=== PATIENT | female | born 1975 | race African-American/Black ===

== ENCOUNTER 2016-08-04 15:50 | Emergency (ER) | payer OTHER ==
--- NOTE | ~2016-08-04 | CT2 ---
[facility] A Service of [facility] RADIOLOGY TEXT RESULTS PATIENT: YUKI HOWARD LOCATION: [facility] : [birth year] UNIT #: [id number] AGE: [address]: Nick Rodriguez MD SEX: F ORDER DR: [id number] [facility] [address] [place], [place] [address] [id number] E MR#: [id number] #: [id number] NAME: YUKI HOWARD : 1975 SEX: F STUDY DATE/TIME: 08/04/2016 20:43 UNIT: [facility] ROOM: STUDY DESCRIPTION: CT Abd and Pelv W Cont Attending Physician: Nick Rodriguez M.D. Ordering Physician: Felipe Desai D.O. [facility] REPORT This report is preliminary unless electronic signature is present EXAM CT of the abdomen and pelvis HISTORY Abdomen pain, nausea, vomiting for [address] abdomen and pelvis performed with administration of 100 mL Isovue-370. Enteric contrast also administered. Comparison 03/29/2015. This CT exam was performed with one or more of the following radiation dose reduction techniques: Automatic exposure control, adjustment of mA and/or kV according to patient size, and iterative reconstruction. FINDINGS Minimal dependent atelectasis at lung bases. Inferior heart and pericardium unremarkable. The liver shows mild enlargement measuring about 18.7 cm in craniocaudal extent. No significant change. Gallbladder, spleen, pancreas, adrenal glands notable for hypodense 1.4 cm x 1.3 cm hypodense nodule in the right adrenal gland. Unchanged from prior examination. Unchanged from noncontrast-enhanced examination 03/15/2013. Stability over this timeframe favors benign adrenal adenoma. There is excreted contrast material in the intrarenal collecting systems and proximal bilateral ureters. Given apparent bolus dynamics on this examination with contrast remaining in the right atrium and ventricle, the appearance of the contrast in the renal collecting systems raises the possibility of prior intravascular contrast administration. Please correlate with patient's history and with renal function. The medical laboratory technologist indicates to me there was no problem with the contrast administration for this examination. No cystic or solid mass lesion is suggested in the kidneys. There is no perinephric inflammatory change. There is no hydronephrosis. CT PELVIS: Mildly prominent inguinal lymph nodes bilaterally, right more STS. [facility] A Service of [facility] RADIOLOGY TEXT RESULTS PATIENT: YUKI HOWARD LOCATION: [facility] : 71 UNIT #: [id number] AGE: [address]: Nick Rodriguez MD SEX: F ORDER DR: so than left, with a dominant 1.4 cm short-axis node in the right inguinal region. There is some subtle subcutaneous fat stranding and haziness in the right aspect of the patient's upper groin/inferior mons pubis with a suggestion of some subtle skin thickening. Please correlate with any clinical signs or symptoms of cellulitis. I see no subcutaneous air or fluid. The urinary bladder is unremarkable. Uterus is enlarged and somewhat lobulated consistent with uterine fibroids. There is a dominant-appearing fibroid along the posterior uterus measuring about 2.9 cm in diameter, previously 2.4 cm. There is a cystic structure in the right adnexa measuring 2.6 x 2.7 cm. It contains some layering higher-density material in its dependent portion. Appearance favors ovarian cyst with some layering internal products of hemorrhage. No free fluid. No adjacent inflammatory change. If it would assist in management, this could be further assessed with pelvic ultrasound. There is no pelvic or retroperitoneal adenopathy. The distal esophagus, stomach, small bowel unremarkable. Umbilical hernia containing fat without complication. Stable appearance. Patient retains the appendix. It is directed cephalad. It appears abnormally dilated, measuring up to about 1 cm in diameter. There is no periappendiceal inflammatory change. On prior examination, the appendix measured approximately 6 mm in diameter. No appendicolith. There is no compelling evidence of appendicitis. Low-density material within the appendix favored to be fluid. Correlate with exam and laboratory data. The colon shows no acute abnormality. Vascular structures poorly defined due to poor contrast bolus. There is no aortic aneurysm. The bony structures show no acute abnormality. IMPRESSION 1. Unusually prominent contrast excretion into the intrarenal collecting systems and proximal ureters. Contrast is seen in the right heart and there is poor opacification of the systemic arteries overall. Cause for contrast in the intrarenal collecting systems is unclear. Please correlate with any known recent intravascular contrast administration. Please correlate with patient's renal function. No hydronephrosis. Kidneys, ureters, urinary bladder otherwise unremarkable. 2. There is a hypodense 2.6 cm x 2.7 cm structure in the right ovary/adnexa with some layering high-density material in its dependent portion. This is favored to be a physiologic ovarian cyst with layering internal products of hemorrhage. It could be further evaluated with ultrasound if it would assist in patient management. 3. The appendix is distended and contains hypodense, probably fluid, material. It measures about 1 cm in diameter but there is no periappendiceal inflammatory change. There is no compelling evidence of appendicitis. Please correlate with clinical exam and laboratory data. Weight should be given the clinical assessment. On prior CT in March 2015, the appendix measured about 6 mm in diameter. 4. Fibroid uterus. 5. Mildly prominent inguinal lymph nodes bilaterally, right greater than [facility] of [facility] RADIOLOGY TEXT RESULTS PATIENT: YUKI HOWARD LOCATION: [facility] : 71 UNIT #: [id number] AGE: [address]: Nick Rodriguez MD SEX: F ORDER DR: left, with a dominant 1.4 cm short-axis right inguinal lymph node. Superficial to these nodes, there is some subcutaneous fat stranding and haziness in the right upper groin/inferior mons pubis with a suggestion of some mild associated skin thickening. Please correlate with any clinical signs or symptoms of localized infection/inflammation such as cellulitis. 6. Mild hepatic enlargement. 7. Stable approximately 1.4 cm right adrenal adenoma. 8. Umbilical hernia containing only fat without complication. Dictated by... Camilo García M.D. THIS IS AN ELECTRONICALLY VERIFIED REPORT Camilo García M.D. at 08/05/2016 5:40 PM MEL/julien TD: 08/05/2016 00:36 JOB #: [id number] MEDICAL IMAGING REPORT Page 1 of 1 COPY
[~2016-08-04 15:50] MED LIST: ALBUTEROL17 GM INH; AMARYL PO; BACTRIM DS TABL1 TA1 PO; BENTYL20 MG PO; DARVOCET-N 1001 TAB PO; DIFLUCAN PO; ERYTHROMYCIN B500 MG PO; FLAGYL PO; GLYNASE1.5 MG PO; HUMULIN 70/30 V10 ML; HUMULIN 70/30 V10 ML SQ; HUMULIN N VIAL SUBQ; HUMULIN R100 U/ML SUBQ; IBUPROFEN PO; LEVEMIR SUBQ; LEVEMIR100 U/ML SUBQ; METFORMIN HCL1000 M1 PO; NOVOLIN 70/30 V10 M1 SUBQ; NOVOLIN 70/30 V10 ML INJ; NOVOLIN 70100 UNITS/ SUBQ; NYSTATIN15 GM OINT EXT; PRINIVIL20 M1 PO; SOMA PO
[2016-08-04 17:04] LABS: BASOPHIL# 0.1 X10e3 (0-0.3); BASOPHIL% 0.6 % (0-2.5); EOSINOPHIL# 0.2 X10e3 (0-0.7); HEMATOCRIT 43.2 % (35.0-45.0); HEMOGLOBIN 13.9 gm/dL (12.0-16.0); LYMPHOCYTE# 2.8 X10e3 (1.0-3.5); LYMPHOCYTE% 32.2 % (17.0-45.0); MEAN CELL VOLUME 85.4 FL (83-96); MEAN CORPUSCULAR HEMOGLOBIN 27.5 PG (28-34); MEAN CORPUSCULAR HGB CONC 32.2 g/dL (30-36); MEAN PLATELET VOLUME 9.8 FL (6.5-11.5); MONOCYTE% 11.3 % (3.0-12.0); NEUTROPHIL# 4.7 X10e3 (1.5-7.1); NEUTROPHIL% 53.9 % (40-75); PLATELET COUNT 232 X10e3 (140-420); RED BLOOD COUNT 5.06 X10e (3.90-5.30); RED CELL DISTRIBUTION WIDTH 17.4 % (11.0-15.5); WHITE BLOOD COUNT 8.7 X10e3 (4.0-10.5)
[2016-08-04 17:10] LABS: DIFF IND NO
[2016-08-04 17:16] LABS: POC - CKMB 1.2 ng/mL (0.0-7.9); POC - TROPONIN <0.05 ng/mL (<=0.05)
[2016-08-04 17:40] LABS: ALBUMIN SERUM 3.8 g/dL (3.5-5.0); BETA HYDROXYBUTYRATE 0.31 MMOL/L (0.02-0.27); BILIRUBIN, DIRECT 0.1 mg/dL (0.0-0.2); BILIRUBIN,INDIRECT 0.2 mg/dL (0.0-0.9); BILIRUBIN,TOTAL 0.3 mg/dL (0.2-2.0); CALCIUM SERUM 9.6 mg/dL (8.4-10.2); CREATININE SERUM 0.6 mg/dL (0.6-1.4); GLOM FILT RATE Estimated 129.4 mL/min (>60); POTASSIUM 3.7 mmol/L (3.5-5.1)
[2016-08-04 18:14] LABS: URINE SOURCE CLEAN CATCH
[2016-08-04 18:18] LABS: URINE APPEARANCE CLEAR; URINE BILIRUBIN NEG (NEG); URINE BLOOD NEG (NEG); URINE COLOR YELLOW; URINE GLUCOSE >1000 MG/DL (NEG); URINE KETONE 1+ (NEG); URINE LEUKOCYTE ESTERASE NEG (NEG); URINE NITRATE NEG (NEG); URINE PROTEIN NEG (NEG); URINE SPECIFIC GRAVITY 1.035 (1.003-1.035); URINE UROBILINOGEN 0.2 MG/DL (NEG)
[2016-08-04 18:27] LABS: CULTURE INDICATED? NO
== END 2016-08-04 22:42 | disposition home or self-care (01) ==
LOC: CED 15:50
PROVIDERS: Emergency Medicine
DX: E11.9 Type 2 diabetes mellitus without complications (principal); I10 Essential (primary) hypertension; F17.200 Nicotine dependence, unspecified, uncomplicated
CPT/HCPCS: 36415; 74177; 80048; 80076; 81003; 82010; 82553; 82947; 83690; 84484; 84703; 85025; 96361; 96374; 96375; 99284; J2405; Q9967

== ENCOUNTER 2016-11-08 07:45 | Inpatient (IN) | payer OTHER ==
[~2016-11-08] VITALS: Ht 142.2 cm; Wt 98.8 kg
--- NOTE | ~2016-11-08 | OR ---
Unit #: [id number] #: [id number] Patient: YUKI HOWARD [id number] [address] [address] [id number] I MR#: [id number] NAME: YUKI HOWARD ROOM: 302 Date of Procedure: 11/09/2016 Admission Date: 11/08/2016 Surgeon: Barrett Curtis M.D. : 1975 Attending Physician: Ameya Slaughter M.D. Primary Care Physician: [facility] OPERATIVE REPORT PREOPERATIVE DIAGNOSIS Right thigh abscess. POSTOPERATIVE DIAGNOSIS Right thigh abscess with wet gangrene of subcutaneous fat. PROCEDURES PERFORMED Incision and drainage of right thigh abscess and level 3 debridement. ANESTHESIA General endotracheal. COMPLICATIONS None. ESTIMATED BLOOD LOSS Minimal. DESCRIPTION OF PROCEDURE After the patient was prepped and draped in the usual fashion, right upper and inner thigh was examined. There was a fluctuant area, which was partly draining purulence. A 3 cm disk was scored out around this with electrocautery. There was thick creamy purulence beneath this and wet gangrene of the subcutaneous fat. All pus was expressed. This was sent for culture, necrotic shaggy wet gangrene was removed with a rongeur back to good bleeding tissue. The cavity of the abscess was approximately 4 x 4 cm. This did not go down to involve fascia. There was no evidence of fasciitis. The cavity was irrigated, suctioned free. Hemostasis was completed with electrocautery. The wound was packed with half-strength Betadine and dressings. The patient was taken to the recovery room in good condition. Dictated by... Rosaura Melgar/radha TD: 11/09/2016 14:55 JOB #: [id number] Unit #: [id number] #: [id number] Patient: YUKI HOWARD OPERATIVE REPORT Page 1 of 1 X Barrett Curtis PROCEDURE OPERATIVE NOTE
--- NOTE | ~2016-11-08 | US84 ---
[id number] [facility] [address] [place], [place] [address] [id number] I MR#: [id number] Acc #: [id number] NAME: YUKI HOWARD : 1975 SEX: F STUDY DATE/TIME: 11/10/2016 8:21 UNIT: [id number] ROOM: 302 STUDY DESCRIPTION: US LE Veins Complete Lester Stdy Attending Physician: Reinaldo Ramirez M.D. Ordering Physician: Ameya Slaughter M.D. Primary Care Physician: [facility]. MEDICAL IMAGING REPORT This report is preliminary unless electronic signature is present EXAM Bilateral lower extremity venous duplex, 11/10/2016 HISTORY Bilateral leg pain and elevated D-dimer for 2 days. Evaluate for deep vein thrombosis. TECHNIQUE Venous ultrasound examination of both lower extremities was performed using grayscale, spectral Doppler and color flow Doppler imaging. FINDINGS The examination is negative. There is no evidence of deep venous thrombus from the groin to the lower calf bilaterally. Visualized greater saphenous veins are also patent. IMPRESSION Negative examination. No evidence of lower extremity deep venous thrombosis. Dictated by... Anthony Stephens M.D. THIS IS AN ELECTRONICALLY VERIFIED REPORT Anthony Stephens M.D. at 11/11/2016 7:16 AM JAYJAY/kym TD: 11/10/2016 14:10 JOB #: [id number] MEDICAL IMAGING REPORT Page 1 of 1 COPY
--- NOTE | ~2016-11-08 | HP ---
Unit #: [id number] #: [id number] Patient: YUKI HOWARD [id number] [address] [address] [id number] I MR#: [id number] NAME: YUKI HOWARD ROOM: 302 Age: 41 Sex: F Admission Date: 11/08/2016 : 1975 Attending Physician: Heather Centeno M.D. Primary Care Physician: [facility]. HISTORY AND PHYSICAL CHIEF COMPLAINT Pain to the right inner thigh. HISTORY OF PRESENT ILLNESS The patient is a 41-year-old female with a history of an uncontrolled diabetes mellitus, brought to the emergency room complaining of the pain on the inner thigh. The patient stated the patient first noticed knot in the inner thigh three days ago and then she tried to compress with the warm compress, however that did not help. The patient presented with the abscess with the purulent drainage from the inner thigh. The patient also complains of feeling hot and positive for nausea and vomiting, denies any chest pain. The patient also complains of the headache and feels that the knot is on the back of the head. The patient's sugars have been running in the 300s for the last few days and thinks that the patient needs to be adjusted on the insulin. PAST MEDICAL HISTORY History of an asthma, bronchitis, glaucoma, diabetes and acute renal failure. PAST SURGICAL HISTORY History of a myomectomy and pilonidal cyst. HOME MEDICATION Patient is on the Levemir 40 units subcu, Humalog 10 units subcu b.i.d., metformin 1000 mg b.i.d., glimepiride 4 mg daily, lisinopril and hydrochlorothiazide 2.5/25, albuterol inhaler p.r.n., metoprolol. ALLERGIES No known drug allergies. SOCIAL HISTORY Smokes half a pack per day and drinks alcohol occasionally, denies any illicit drug abuse. FAMILY HISTORY Reviewed and none. REVIEW OF SYMPTOMS Positive for the pain at the inner thigh, pain at the head and nausea and vomiting and all other systems have been reviewed and are none. PHYSICAL EXAMINATION Unit #: [id number] #: [id number] Patient: YUKI HOWARD GENERAL APPEARANCE: On examination the patient is lying on a bed, not in acute distress. VITAL SIGNS: Temperature 98.6, pulse 127, respiratory rate 18, blood pressure 155/93, sating 100% at room air. HEENT: Head atraumatic and normocephalic. Pupils equal, round and reacting to light and accommodation. Extraocular movements are intact. NECK: Supple. LUNGS: Decreased air entry at the bases. HEART: Regular rate and rhythm. ABDOMEN: Soft. Positive bowel sounds. EXTREMITIES: Patient has inner thigh status post I/D with 30 mL of purulent material drained and complains of severe tenderness. NEUROLOGIC: Alert, awake, oriented. No gross focal motor deficit. DIAGNOSTIC STUDIES LABORATORY DATA: Sodium 134, potassium 4.4, chloride 102, bicarb 11, glucose 415, BUN 9, creatinine 0.8, AST 8, ALT 8, alkaline phosphatase 109, total bilirubin 2.4, lipase 23, lactic acid is 1, glucose at 370. UA shows glucose more than 1000. WBC is 17.7, hemoglobin 14.3, hematocrit 44, platelet is 247. CK total is 16. Troponin less than 0.05. D-dimer 632. Wound cultures are positive for the few Gram-positive cocci in pairs, occasional Gram-negative rods. Lactic acid is 1.7, glucose 248. ASSESSMENT 1. Sepsis. 2. Diabetic abscess. 3. Uncontrolled diabetes. PLAN Plan to admit the patient to the inpatient with the telemetry. Continue with empiric antibiotics with the vancomycin and Zosyn and will have the LSA consult for the abscess drainage and continue with the low dose sliding scale and follow with the wound cultures and follow with the septic protocol and further recommendations will follow. Dictated by Rosaura Valencia/halina TD: 11/08/2016 19:15 JOB #: [id number] HISTORY AND PHYSICAL Page 1 of 1 X HEATHER CENTENO MD X HISTORY AND PHYSICAL
--- NOTE | ~2016-11-08 | DS ---
Unit #: [id number] #: [id number] Patient: YUKI HOWARD [id number] [address] [address] [id number] I MR#: [id number] NAME: YUKI HOWARD ROOM: 302 Age: 41 Sex: F Admission Date: 11/08/2016 : 1975 Discharge Date: 11/10/2016 Attending Physician: Reinaldo Ramirez M.D. Primary Care Physician: [facility]. DISCHARGE SUMMARY DISCHARGE DIAGNOSES 1. Abscess and cellulitis, right thigh. 2. Sepsis. 3. Uncontrolled type 2 diabetes. HOSPITAL COURSE Patient is a 41-year-old female, presented to [facility] Emergency Department with a complaint of pain in her right thigh. She was noted to have abscess and was taken by the surgical service for I and D of the right thigh and level 3 debridement. Subsequently wound cultures have grown group B strep. At this time the patient states she feels well. She has been on Zosyn and vancomycin since admission. She is being discharged on Augmentin for 5 more days. She is also being discharged with home health for local wound care. DISCHARGE MEDICATIONS 1. Levemir 40 units subcu daily. 2. Humalog 10 units subcu b.i.d. 3. Metformin 1,000 mg p.o. b.i.d. 4. Glimepiride 4 mg p.o. daily. 5. Lisinopril/Hydrochlorothiazide 2.5/25 one p.o. daily. 6. Albuterol inhaler as needed. 7. Metoprolol at her previous daily dose. FOLLOWUP Patient should see her primary care provider in 1 week. Dictated by... Rosaura Rojas/antonieta TD: 11/12/2016 11:10 JOB #: [id number] Unit #: [id number] #: [id number] Patient: YUKI HOWARD DISCHARGE SUMMARY Page 1 of 1 X Reinaldo Ramirez MD X DISCHARGE SUMMARY
--- NOTE | ~2016-11-08 | BMI ---
[facility] Nutrition Therapy DATE: 11/10/16 Patient: YUKI HOWARD Physician: GAETANO Address: [address] [place] [address] Room/Bed: [address] [place] [address], Zip: [place] [address] Admit Date: 11/08/16 Date of : [birth year] Height: 4 8 Weight: 217 98.8 HIGH BMI NOTE: DX: PAIN TO R-THIGH ANTHROPOMETRICS: HT: 4'8", WT: 218#, BMI: 48.9 DIET: CCD, FLUID RESTRICTION RECOMMENDATIONS: RECOMMEND ADDING HEART HEALTHY TO CURRENT DIET ORDER TO PROMOTE A STEADY WEIGHT LOSS TOWARDS A HEALTHY BMI OF 19-25 Respectfully, CT RODRIGUEZ, MARIANA, LD [employer] cc: client file
--- NOTE | ~2016-11-08 | EKG ---
PATIENT: YUKI HOWARD UNIT #: [id number] Ventricular Rate: 116 BPM Atrial Rate: 116 BPM P-R Interval: 122 ms QRS Duration: 80 ms Q-T Interval: 330 ms QTC Calculation(Bezet): 458 ms P [place]: 73 degrees Calculated R [place]: 5 degrees Calculated T [place]: 58 degrees Diagnosis Line: Sinus tachycardia Diagnosis Line: Right atrial enlargement Diagnosis Line: Borderline ECG Diagnosis Line: When compared with ECG of 14-MAR-2013 20:23, Diagnosis Line: No significant change was found Diagnosis Line: Confirmed by BARTOLOME CHAIDEZ MD ([id number]) on Diagnosis Line: 11/10/2016 4:48:20 PM INTERPRETING MD: MEME
--- NOTE | ~2016-11-08 | CR72 ---
[facility] A Service of [facility] & [facility] RADIOLOGY TEXT RESULTS PATIENT: YUKI HOWARD LOCATION: [facility] 302-01 : [birth year] UNIT #: [id number] AGE: [address]: DAVID COLE V SEX: F ORDER DR: [id number] [facility] [address] [place], [place] [address] [id number] I MR#: [id number] Acc #: [id number] NAME: YUKI HOWARD : 1975 SEX: F STUDY DATE/TIME: 11/08/2016 8:33 UNIT: [address] ROOM: [facility] STUDY DESCRIPTION: CR Chest Single View Portable Attending Physician: David Cole M.D. Ordering Physician: Neyda Schulte P.A.-C. [facility] REPORT This report is preliminary unless electronic signature is present EXAM Portable chest, 11/08/2016. INDICATIONS Chest pain for 3 days and shortness of air. COMPARISON 02/04/2016 FINDINGS Portable view of the chest was obtained. The heart size and vascularity are normal. Lungs are clear. Bones are normal. IMPRESSION No active disease. Dictated by... Flo Lee M.D. THIS IS AN ELECTRONICALLY VERIFIED REPORT Flo Lee M.D. at 11/10/2016 6:15 AM Jodi TD: 11/09/2016 10:13 JOB #: [id number] MEDICAL IMAGING REPORT Page 1 of 1 COPY
--- NOTE | ~2016-11-08 | CO ---
Unit #: [id number] #: [id number] Patient: YUKI HOWARD [id number] [address] [place], [place] [address] [id number] I MR#: [id number] NAME: YUKI HOWARD ROOM: 302 Age: 41 Sex: F Admission Date: 11/08/2016 : 1975 Attending Physician: Reinaldo Ramirez M.D. Primary Care Physician: [facility] Consultation Date: 11/09/2016 CONSULTATION REPORT PRIMARY REASON FOR CONSULTATION Right thigh abscess. HISTORY OF PRESENT ILLNESS The patient is a 41-year-old woman with uncontrolled diabetes, who presents to the emergency room complaining of pain in her right inner thigh. She noticed a knot there 3 days ago, she tried to use warm compresses. The area began to swell, became more painful and she did have some spontaneous purulent drainage. She reports feeling nauseated and having some vomiting prior to admission. Her blood sugars have been running in the 300s for the last few days. She has never had any previous such symptoms. PAST MEDICAL HISTORY As above. She also has a history of asthma, bronchitis, glaucoma, diabetes, acute renal failure. She is status post myomectomy and pilonidal cyst excision. MEDICATIONS See her MAR. ALLERGIES She has no known medical allergies. SOCIAL HISTORY She smokes half pack a day of cigarettes. She drinks alcohol occasionally. She denies any drug abuse. FAMILY HISTORY Noncontributory. REVIEW OF SYSTEMS A 10-point review is performed. This is negative other than what was already listed in history of present illness. PHYSICAL EXAMINATION GENERAL: She is alert, in no apparent distress. VITAL SIGNS: Temperature 98.6, pulse 127, respirations 18, blood pressure 155/93. She is 100% saturated on room air. HEENT: Pupils are equal and round. Extraocular motions are intact. NECK: Supple without adenopathy. HEART: Regular rate and rhythm. LUNGS: Clear to auscultation anteriorly. ABDOMEN: Soft, obese, benign. Unit #: [id number] #: [id number] Patient: YUKI HOWARD EXTREMITIES: In right upper inner thigh, she has an area of induration approximately 10 cm in diameter. There is a central area of fluctuance and she is exquisitely tender. NEUROLOGIC: Negative focal sensory or motor deficits. SKIN: Warm and dry. LABORATORY DATA Significant for a white blood cell count of 17.7, hemoglobin 14.3. ASSESSMENT AND PLAN The patient with incompletely drained right thigh abscess. We will bring her to the operating room for incision and drainage. I have discussed with her. She is agreeable. This will be done today. Dictated by... Barrett Curtis M.D. ANA MARÍA/radha TD: 11/10/2016 16:35 JOB #: [id number] CONSULTATION REPORT Page 1 of 1 X Barrett Curtis X CONSULTATION REPORT
--- NOTE | ~2016-11-08 | NM69 ---
[facility] A Service of [facility] & [facility] RADIOLOGY TEXT RESULTS PATIENT: YUKI HOWARD LOCATION: [facility] 302-01 : [birth year] UNIT #: [id number] AGE: [address]: Reinaldo Ramirez MD SEX: F ORDER DR: [id number] [facility] [address] [place], [place] [address] [id number] I MR#: [id number] Acc #: [id number] NAME: YUKI HOWARD : 1975 SEX: F STUDY DATE/TIME: 11/10/2016 10:22 UNIT: [address] ROOM: [facility] STUDY DESCRIPTION: NM Pulm Vent and Perf Attending Physician: Reinaldo Ramirez M.D. Ordering Physician: Ameya Slaughter M.D. Primary Care Physician: [facility] MEDICAL IMAGING REPORT This report is preliminary unless electronic signature is present EXAM Ventilation perfusion study of the lungs HISTORY Tachycardia with elevated D-dimer. Evaluate for pulmonary embolus. FINDINGS The ventilation study is done with 25.3 mCi of technetium 99m DTPA in aerosol form and the perfusion study was done with 4.9 mCi of technetium 99m MAA. The perfusion ventilation images appear normal. IMPRESSION Normal ventilation perfusion study of the lungs. Dictated by... Flo Lee M.D. THIS IS AN ELECTRONICALLY VERIFIED REPORT Flo Lee M.D. at 11/10/2016 7:57 PM FEL/to TD: 11/10/2016 17:56 JOB #: [id number] MEDICAL IMAGING REPORT Page 1 of 1 COPY
[2016-11-08 08:47] LABS: BASOPHIL# 0.1 X10e3 (0-0.3); BASOPHIL% 0.3 % (0-2.5); EOSINOPHIL% 0.1 % (0.0-7.0); HEMOGLOBIN 14.3 gm/dL (12.0-16.0); LYMPHOCYTE# 1.4 X10e3 (1.0-3.5); LYMPHOCYTE% 7.8 % (17.0-45.0); MEAN CELL VOLUME 91.2 FL (83-96); MEAN CORPUSCULAR HEMOGLOBIN 29.6 PG (28-34); MEAN CORPUSCULAR HGB CONC 32.5 g/dL (30-36); MEAN PLATELET VOLUME 9.7 FL (6.5-11.5); MONOCYTE# 1.7 X10e3 (0-1.0); MONOCYTE% 9.4 % (3.0-12.0); NEUTROPHIL# 14.6 X10e3 (1.5-7.1); NEUTROPHIL% 82.4 % (40-75); PLATELET COUNT 247 X10e3 (140-420); RED BLOOD COUNT 4.82 X10e (3.90-5.30); RED CELL DISTRIBUTION WIDTH 16.9 % (11.0-15.5); WHITE BLOOD COUNT 17.7 X10e3 (4.0-10.5)
[2016-11-08 08:48] LABS: DIFF IND YES
[2016-11-08 09:07] LABS: ALBUMIN SERUM 3.6 g/dL (3.5-5.0); BILIRUBIN, DIRECT 0.1 mg/dL (0.0-0.2); BILIRUBIN,INDIRECT 2.3 mg/dL (0.0-0.9); BILIRUBIN,TOTAL 2.4 mg/dL (0.2-2.0); BUN/CREATININE RATIO 11.25; CALCIUM SERUM 9.3 mg/dL (8.4-10.2); CREATININE SERUM 0.8 mg/dL (0.6-1.4); GLOM FILT RATE Estimated 104.7 mL/min (>60); POTASSIUM 4.4 mmol/L (3.5-5.1); PROTEIN TOTAL SERUM 8.7 g/dL (6.0-8.3)
[2016-11-08 10:07] LABS: URINE SOURCE CLEAN CATCH
[2016-11-08 10:12] LABS: URINE APPEARANCE CLEAR; URINE BILIRUBIN NEG (NEG); URINE BLOOD NEG (NEG); URINE COLOR YELLOW; URINE GLUCOSE >1000 MG/DL (NEG); URINE KETONE 3+ (NEG); URINE LEUKOCYTE ESTERASE NEG (NEG); URINE NITRATE NEG (NEG); URINE PROTEIN 1+ (NEG); URINE UROBILINOGEN 0.2 MG/DL (NEG)
[2016-11-08 10:15] LABS: CULTURE INDICATED? NO; U HYALINE CASTS AUWI 0-2 /[LPF]; URBCS1 AUWI 0-2 /[HPF] (0-2); URINE BACTERIA AUWI NEG (NEGATIVE); URINE SQUAMOUS EPITHELIAL CELL NONE SEEN /[HPF]; UWBCS1 AUWI 0-2 (0-5)
[2016-11-08 10:36] LABS: PLATELET ESTIMATE NORMAL (NORMAL); RBC NORMAL YES
[2016-11-08 11:12] LABS: CK TOTAL 16 IU/L (26-140)
[2016-11-08 12:17] LABS: POC - CKMB 1.5 ng/mL (0.0-7.9); POC - TROPONIN <0.05 ng/mL (<=0.05)
[2016-11-09 07:17] LABS: HEMATOCRIT 39.8 % (35.0-45.0); HEMOGLOBIN 12.9 gm/dL (12.0-16.0); MEAN CELL VOLUME 89.9 FL (83-96); MEAN CORPUSCULAR HEMOGLOBIN 29.2 PG (28-34); MEAN CORPUSCULAR HGB CONC 32.5 g/dL (30-36); MEAN PLATELET VOLUME 9.4 FL (6.5-11.5); RED BLOOD COUNT 4.43 X10e (3.90-5.30); RED CELL DISTRIBUTION WIDTH 16.4 % (11.0-15.5); WHITE BLOOD COUNT 11.4 X10e3 (4.0-10.5)
[2016-11-09 07:51] LABS: BUN/CREATININE RATIO 11.66; CALCIUM SERUM 9.1 mg/dL (8.4-10.2); CREATININE SERUM 0.6 mg/dL (0.6-1.4); GLOM FILT RATE Estimated 129.4 mL/min (>60); POTASSIUM 4.1 mmol/L (3.5-5.1)
[2016-11-09 16:35] LABS: PARTIAL THROMBOPLASTIN TIME 27.6 SECONDS (23.5-31.3); PROTHROMBIN TIME (PATIENT) 10.8 SECONDS (10.0-11.7)
[2016-11-10 06:10] LABS: CALCIUM SERUM 8.8 mg/dL (8.4-10.2); CREATININE SERUM 0.5 mg/dL (0.6-1.4); GLOM FILT RATE Estimated 137.4 mL/min (>60); POTASSIUM 3.1 mmol/L (3.5-5.1)
[2016-11-10] MEDS ORDERED: LORTAB 7.5-3251 EACH PO (15:17)
[2016-11-10] MEDS ORDERED: AUGMENTIN PO (15:20)
[2016-11-10] MEDS ORDERED: LEVEMIR FL100 UNIT/1 SUBQ (15:27)
[2016-11-10] MEDS ORDERED: HUMALOG100 UNIT/1 SUBQ (15:28)
[2016-11-10] MEDS ORDERED: METFORMIN HCL1000 M1 PO (15:29)
[2016-11-10] MEDS ORDERED: AMARYL PO (15:29)
[2016-11-10] MEDS ORDERED: HCTZ PO (15:33)
[2016-11-10] MEDS ORDERED: ALBUTEROL20 ml INH (15:40)
[2016-11-10] MEDS ORDERED: TOPROL XL PO (15:50)
[2016-11-11 07:18] LABS: CHLAMYDIA TRACH Not Detected (Not Detected); N GONOR Not Detected (Not Detected)
== END 2016-11-10 18:04 | disposition home health service (06) | DRG 854 ==
LOC: CED 07:45 → CEDOF 11:50 → CED 12:15 → C3A PCU 12:15 → CEDOF 12:15 → C3A PCU 12:15 → CEDOF 16:59 → C3A PCU 11-09 06:48
PROVIDERS: Internal Medicine; Physician Assistant; Surgery
PROC: 0JBL0ZZ Excision of Right Upper Leg Subcutaneous Tissue and Fascia, Open Approach (ICD-10-PCS; principal; 2016-11-09 12:00)
DX: A41.9 Sepsis, unspecified organism (principal); L02.415 Cutaneous abscess of right lower limb; E11.52 Type 2 diabetes mellitus with diabetic peripheral angiopathy with gangrene; E11.628 Type 2 diabetes mellitus with other skin complications; L03.115 Cellulitis of right lower limb; Z68.43 Body mass index [BMI] 50.0-59.9, adult; F17.200 Nicotine dependence, unspecified, uncomplicated; E11.65 Type 2 diabetes mellitus with hyperglycemia; H40.9 Unspecified glaucoma; J45.909 Unspecified asthma, uncomplicated; E66.01 Morbid (severe) obesity due to excess calories; Z79.4 Long term (current) use of insulin
CPT/HCPCS: 10060; 36415; 71010; 78582; 80048; 80076; 81003; 82550; 82553; 82947; 83605; 83690; 84484; 84703; 85025; 85027; 85379; 85610; 85730; 87040; 87070; 87075; 87077; 87205; 87491; 87591; 87808; 87905; 93005; 93970; 94640; 94760; 96365; 96366; 96375; 96376; 99285; A9540; A9567; J0330; J1644; J1815; J2250; J2270; J2405; J2543; J3010; J3370